=== PATIENT | female | born 1940 | race Caucasian/White ===

== ENCOUNTER 2017-09-24 15:06 | Inpatient (IN) | payer OTHER ==
[~2017-09-24] VITALS: Ht 162.6 cm; Wt 113.2 kg
[2017-09-24 15:57] VITALS: BP 155/72
[2017-09-24] MEDS ORDERED: LASIX20 MG PO (16:06)
[2017-09-24] MEDS ORDERED: UNITHROID50 MCG PO (16:06)
[2017-09-24] MEDS ORDERED: KLOR-CON M2020 MEQ PO (16:07)
[2017-09-24] MEDS ORDERED: LOPRESSOR25 MG PO (16:08)
[2017-09-24] MEDS ORDERED: ATORVASTATIN CA40 MG PO (16:09)
[2017-09-24] MEDS ORDERED: FLUOXETINE HCL20 MG PO (16:10)
[2017-09-24 16:11] VITALS: BP 155/72
[2017-09-24] MEDS ORDERED: ELIQUIS5 MG PO (16:11)
[2017-09-24] MEDS ORDERED: PROCARDIA XL60 MG PO (16:13)
[2017-09-24 16:28] VITALS: BP 156/80
[2017-09-25] VITALS: BP 110/85
[2017-09-25 05:41] VITALS: BP 125/60
[2017-09-25 06:16] LABS: HEMATOCRIT 42.7 % (36.0-46.0); HEMOGLOBIN 14.1 G/DL (11.9-15.5); MCH 30.1 PG (29.0-34.0); PLATELET COUNT 123 K/uL (156-360); RBC DIS.WIDTH-CV 13.2 % (11.8-14.6); RED BLOOD COUNT 4.69 M/uL (3.80-5.20); WHITE BLOOD COUNT 6.8 K/uL (4.1-10.2)
[2017-09-25 06:45] LABS: ALBUMIN 3.9 G/DL (3.2-4.8); ALKALINE PHOSPHATASE 67 IU/L (3-129); ALT (GPT) 12 IU/L (3-49); AST (GOT) 19 IU/L (2-34); CHLORIDE 107 MEQ/L (99-109); GFR ESTIMATE (CALCULATED) 57 mL/min/; GLUCOSE 101 mg/dL (70-99); SODIUM 140 MEQ/L (136-147); TOTAL BILIRUBIN 0.7 MG/DL (0.0-1.0); TOTAL PROTEIN 6.6 G/DL (6.4-8.3); UREA NITROGEN (BUN) 27 mg/dL (9-23)
[2017-09-25 15:00] VITALS: BP 141/43
[2017-09-26 06:14] VITALS: BP 125/57
[2017-09-26 08:14] VITALS: BP 122/69
[2017-09-26 15:22] VITALS: BP 139/62
[2017-09-27 05:15] VITALS: BP 146/65
[2017-09-27 15:19] VITALS: BP 109/56
[2017-09-28 05:25] VITALS: BP 137/69
[2017-09-28 15:15] VITALS: BP 125/64
[2017-09-29 05:43] VITALS: BP 150/63
[2017-09-29 15:11] VITALS: BP 137/72
[2017-09-30 05:01] VITALS: BP 108/58
[2017-09-30 15:18] VITALS: BP 123/62
[2017-10-01 06:17] VITALS: BP 135/74
[2017-10-01 16:04] VITALS: BP 123/61
[2017-10-02 05:05] VITALS: BP 143/65
[2017-10-02 15:37] VITALS: BP 121/56
[2017-10-03 05:35] VITALS: BP 111/72
[2017-10-03 15:33] VITALS: BP 104/54
[2017-10-04 04:52] VITALS: BP 129/61
[2017-10-04 16:16] VITALS: BP 130/72
[2017-10-05 05:06] VITALS: BP 143/63
[2017-10-05 14:20] LABS: HEMATOCRIT 40.9 % (36.0-46.0); HEMOGLOBIN 13.4 G/DL (11.9-15.5); MCH 30.2 PG (29.0-34.0); MCHC 32.8 G/DL (30.0-36.0); MCV 92.1 FL (83-99); PLATELET COUNT 119 K/uL (156-360); RBC DIS.WIDTH-CV 12.9 % (11.8-14.6); RBC DIS.WIDTH-SD 43.4 % (39-53); RED BLOOD COUNT 4.44 M/uL (3.80-5.20); WHITE BLOOD COUNT 6.7 K/uL (4.1-10.2)
[2017-10-05 14:45] LABS: ALBUMIN 3.8 G/DL (3.2-4.8); ALKALINE PHOSPHATASE 71 IU/L (3-129); ALT (GPT) 17 IU/L (3-49); AST (GOT) 23 IU/L (2-34); CHLORIDE 106 MEQ/L (99-109); GFR ESTIMATE (CALCULATED) 57 mL/min/; GLUCOSE 100 mg/dL (70-99); POTASSIUM 4.3 MEQ/L (3.7-5.4); SODIUM 140 MEQ/L (136-147); TOTAL BILIRUBIN 0.7 MG/DL (0.0-1.0); TOTAL PROTEIN 6.8 G/DL (6.4-8.3); UREA NITROGEN (BUN) 18 mg/dL (9-23)
[2017-10-05 15:39] VITALS: BP 105/56
[2017-10-05] MEDS ORDERED: FLUOXETINE HCL20 MG PO (19:36)
[2017-10-05] MEDS ORDERED: LASIX20 MG PO (19:36)
[2017-10-05] MEDS ORDERED: UNITHROID50 MCG PO (19:36)
[2017-10-05] MEDS ORDERED: LOPRESSOR25 MG PO (19:36)
[2017-10-05] MEDS ORDERED: ELIQUIS5 MG PO (19:36)
[2017-10-05] MEDS ORDERED: ATORVASTATIN CA40 MG PO (19:36)
[2017-10-05] MEDS ORDERED: KLOR-CON M2020 MEQ PO (19:36)
[2017-10-05] MEDS ORDERED: PROCARDIA XL60 MG PO (19:36)
[2017-10-06 05:16] VITALS: BP 116/57
== END 2017-10-06 13:45 | disposition home health service (06) | DRG 57 ==
LOC: 3WEST 15:06 → ENPENDDIS 10-06 → 3WEST 10-06 13:45
PROVIDERS: Physical Medicine & Rehabilitation Pain Medicine
PROC: F07M0ZZ Range of Motion and Joint Mobility Treatment of Musculoskeletal System - Whole Body (ICD-10-PCS; principal; 2017-09-24)
DX: I69.351 Hemiplegia and hemiparesis following cerebral infarction affecting right dominant side (principal); I25.10 Atherosclerotic heart disease of native coronary artery without angina pectoris; I10 Essential (primary) hypertension; D69.6 Thrombocytopenia, unspecified; E03.9 Hypothyroidism, unspecified; I48.91 Unspecified atrial fibrillation; E66.9 Obesity, unspecified; Z66 Do not resuscitate; Z79.01 Long term (current) use of anticoagulants; Z85.038 Personal history of other malignant neoplasm of large intestine; Z95.2 Presence of prosthetic heart valve; Z68.41 Body mass index [BMI] 40.0-44.9, adult
CPT/HCPCS: 80053; 85027; 92523 GN; 93971; 97112 GO; 97530 GP